=== PATIENT | female | born 1935 | race Asian ===

== ENCOUNTER → 2016-06-24 | Outpatient (CLI) | payer MEDICARE, BC ==
[~2016-06-24] MED LIST: 3N1 COMMODE MC; AMLO1TAB84 PO; ASPI-781 PO; CPM MC; MIRA25TA PO; OXYC-481 PO; TRAM50TA2 PO; WALK1EAC23 MC
== END | disposition home or self-care (01) ==
LOC: HKI 09:47
PROVIDERS: ATTEND Orthopaedic Surgery
DX: T84.84XA Pain due to internal orthopedic prosthetic devices, implants and grafts, initial encounter (principal); G89.18 Other acute postprocedural pain; Z96.651 Presence of right artificial knee joint; M25.561 Pain in right knee
CPT/HCPCS: G0463